=== PATIENT | female | born 1965 | race Caucasian/White ===

== ENCOUNTER 2017-02-01 13:35 | Emergency (ER) | payer MEDICARE, MEDICAID ==
[2017-02-01 15:18] VITALS: BP 113/87
--- NOTE | 2017-02-04 16:02 | ER ---
DATE SEEN: 02/01/2017 HISTORY OF PRESENT ILLNESS: This is a 51-year-old woman, who lives in [facility]. PAST MEDICAL HISTORY: Significant for VSD, congenital heart disease, seizures, autism, developmental delay, profound mental retardation. Today, she presents because the staff worker thought perhaps she had transient loss of right arm use, it was "quite limp" which has come back to normal. MEDICATIONS: 1. Trazodone 50 at bedtime. 2. Seroquel 25 mg t.i.d. 3. Oxcarbazepine 300 mg b.i.d. 4. Zyrtec 10 mg daily. 5. Temovate 1 application b.i.d. p.r.n. 6. Mupirocin p.r.n. 7. Mineral oil daily to each ear. 8. Lorazepam 1 mg q.4 hours p.r.n. 9. Risperdal 1 mg at 8 o'clock and 1600. 10.Carbamazepine 400 mg at 8 o'clock and 12 noon. 11.Carbamazepine 600 mg in the evening. 12.Cryselle control daily. 13.Naproxen 220 to 440 mg q.12 hours p.r.n. ALLERGIES: Depakote, penicillin, and Thorazine. REVIEW OF SYSTEMS: The patient is unable to provide any history. Constitution: She is attended by a staff worker from the [facility]. PHYSICAL EXAMINATION: INSPECTION: She has a hatchet face. NEUROLOGIC: She has a flat affect. Mouth is open, has groans intermittently. This is her only communication. She has very significant dysconjugate gaze with her left eye gazing laterally and right eye gazing at me. Her teeth are very . Several teeth missing. Fairly good hygiene. Uvula and tongue are midline. No facial tenderness with palpation. No ecchymosis, swelling, or tenderness. NECK: No tenderness or cervical adenopathy. No thyromegaly. No bruits in the neck. There is a soft murmur that is transmitted from the chest to the carotids on left side, more notable crescendo-decrescendo 2/6 murmur in the left hand side (aortic stenosis). CARDIAC: Irregularity of heartbeat. LUNGS: Clear to auscultation without rales or rhonchi. ABDOMEN: Soft. No guarding. No abdominal discomfort. No CVA percussion tenderness. No spinous process tenderness, ecchymosis, contusions, or bruises noted in upper and lower spine or chest or abdomen. PELVIC: Not performed. EXTREMITIES: Lower extremities without edema. MUSCULOSKELETAL: She has almost stork like legs with decreased muscle mass in lower extremities, more decreased than would be normal. Strength is satisfactory. She has 1 to 2+ deep tendon reflexes that are symmetrical in upper and lower extremities. Hand soft shoe dancer is intact in upper and lower extremities. No pronator drift. She can perform zobovd-pf-mica test, no dysmetria. No tremor noted. Her gait is wide-based, shuffling, and short steps taken. No evidence for lateralizing MANAGER FRONT OFFICE findings. No evidence for seizure. Dysconjugate gaze reflects brainstem abnormality and also optic nerve abnormalities. No Cecilio Gabriel pupil noted (afferent pupillary defect). No evidence for paresis or weakness that is unilateral. ASSESSMENT: 1. Profound mental retardation, known seizure disorder. 2. Ventral septal defect. 3. Congenital heart disease. 4. Autism. 5. Severe developmental delay. PLAN: 1. Reassured staff no CVA or paresis. 2. Followup with MD in one week. The patient was seen at 1345. /[id number] ROSA/ANTONY
== END 2017-02-01 15:17 | disposition home or self-care (01) ==
LOC: FB.ED 13:35
DX: F73 Profound intellectual disabilities (principal); Q21.0 Ventricular septal defect; Q24.9 Congenital malformation of heart, unspecified; F84.0 Autistic disorder; R62.50 Unspecified lack of expected normal physiological development in childhood; Z79.899 Other long term (current) drug therapy; Z88.8 Allergy status to other drugs, medicaments and biological substances; Z88.0 Allergy status to penicillin
CPT/HCPCS: 36415; 80053; 85025; 99282; 99284

== ENCOUNTER 2021-04-07 17:57 | Emergency (ER) | payer MEDICARE, MEDICAID ==
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
[2021-04-08 10:16] VITALS: BP 125/78; PULSE 97
== END 2021-04-07 20:25 | disposition home or self-care (01) ==
LOC: FB.ED 17:57
DX: S00.212A Abrasion of left eyelid and periocular area, initial encounter (principal); Z88.0 Allergy status to penicillin; Z88.8 Allergy status to other drugs, medicaments and biological substances; Y04.0XXA Assault by unarmed brawl or fight, initial encounter; Y92.009 Unspecified place in unspecified non-institutional (private) residence as the place of occurrence of the external cause
CPT/HCPCS: 99283

== ENCOUNTER 2022-07-13 11:17 | Emergency (ER) | payer MEDICARE, MEDICAID ==
[2022-07-13 11:38] VITALS: BP 97/55; PULSE 69
[2022-07-13 12:11] LABS: ESTIMATED GFR 100 mL/min (>60)
[2022-07-13] MEDS ORDERED: Sodium Chloride 0.9% 1,000 ML IV ONE (12:25)
[2022-07-13] MEDS ORDERED: diphenhydrAMINE 50 MG/ML SDV IVPUSH ONE (12:53)
[2022-07-13] MEDS ORDERED: LORazepam 2 MG/ML SDV ONE (13:29)
[2022-07-13] MEDS ORDERED: LORazepam 2 MG/ML SDV IVPUSH ONE (13:29)
== END 2022-07-13 15:15 | disposition home or self-care (01) ==
LOC: FB.ED 11:17
DX: R56.9 Unspecified convulsions (principal); E86.0 Dehydration; Z88.0 Allergy status to penicillin; Z88.8 Allergy status to other drugs, medicaments and biological substances
CPT/HCPCS: 36415; 71045; 80053; 81001; 83605; 85025; 87040; 87077; 87186; 96361; 96374; 96375; 99284-25; 99285; J1200; J2060; J7030

== ENCOUNTER 2024-10-13 07:35 | Inpatient (IN) | payer MEDICARE, MEDICAID, OTHER ==
[2024-10-13] MEDS: Sodium Chloride 0.9% 10 ML Syringe FLUSH PRN (08:08)
[2024-10-13 08:31] LABS: BASOPHILS PERCENT AUTO 0.4 % (0.2-1.5); EOSINOPHILS ABSOLUTE AUTO 0.1 x10-3/uL (0.0-0.8); EOSINOPHILS PERCENT AUTO 1.1 % (0.6-8.1); HEMATOCRIT 48.9 % (34.2-48.2); HEMOGLOBIN 16.8 g/dL (11.4-15.5); LYMPHOCYTES ABSOLUTE AUTO 1.1 x10-3/uL (1.0-4.4); LYMPHOCYTES PERCENT AUTO 9.3 % (18.4-52.1); MEAN CORPUSCULAR HEMOGLOBIN 30.8 pg (23.9-33.9); MEAN CORPUSCULAR HGB CONC 34.3 g/dL (31.9-34.8); MEAN CORPUSCULAR VOLUME 89.8 fL (76.7-100.5); MEAN PLATELET VOLUME 7.5 fL (7.1-12.4); MONOCYTES ABSOLUTE AUTO 0.7 x10-3/uL (0.3-1.0); MONOCYTES PERCENT AUTO 5.7 % (4.4-15.7); NEUTROPHILS ABSOLUTE AUTO 10.2 x10-3/uL (1.5-6.3); NEUTROPHILS PERCENT AUTO 83.5 % (30.8-76.2); PLATELET COUNT,PLT 319 x10(3)uL (151-488); RED BLOOD CELL COUNT 5.45 x10(6)uL (3.60-5.20); RED CELL DISTRIBUTION WIDTH 13.4 % (12.3-16.5); WHITE BLOOD CELL COUNT,WBC 12.3 x10-3/uL (3.0-10.3)
[2024-10-13 08:33] LABS: BLOOD UREA NITROGEN,BUN 12 mg/dL (7-18); BUN/CREATININE RATIO 13.3 (9-20); CALCIUM 9.7 mg/dL (8.6-10.2); CARBON DIOXIDE,CO2 29 mmol/L (21-32); CHLORIDE,CL 92 mmol/L (100-110); CREATININE 0.9 mg/dL (0.55-1.02); EST CRCL DRUG DOSING (CG) 62.23 mL/min; ESTIMATED GFR 73 mL/min (>60); GLUCOSE RANDOM 105 mg/dL (80-116); POTASSIUM,K 4.8 mmol/L (3.5-5.3); SODIUM,NA 129 mmol/L (135-145)
[2024-10-13 08:39] LABS: BASE EXCESS VENOUS,POC 2 mmol/L (-2 - 3+); PCO2 VENOUS,POC 34 mmHg (41-51); PH VENOUS,POC 7.48 pH Units (7.32-7.43)
[2024-10-13 08:39] LABS: A/G RATIO 0.9; ALANINE AMINOTRANSFERASE,ALT 25 U/L (12-36); ALBUMIN 4.1 g/dL (3.2-4.6); ALKALINE PHOSPHATASE 156 IU/L (56-112); ASPARTATE AMNIOTRANSFERASE,AST 20 IU/L (5-25); BILIRUBIN TOTAL 0.3 mg/dL (0.1-1.3); PROTEIN TOTAL,TP 8.5 g/dL (6.0-8.0)
[2024-10-13 08:41] LABS: LACTIC ACID 1.7 mmol/L (0.4-2.0)
[2024-10-13] MEDS ORDERED: Sennosides/Docusate Sodium 50-8.6 MG Tab PO PRN (09:16)
[2024-10-13] MEDS ORDERED: Ondansetron 4 MG/2 ML SDV IV PRN (09:16)
[2024-10-13] MEDS ORDERED: Albuterol 0.083% 2.5 MG/3 ML Neb Soln NEB PRN (09:16)
[2024-10-13] MEDS: cefTRIAXone 1 GM Vial IVPUSH SCH (10:22)
[2024-10-13] MEDS: Albuterol/Ipratropium 3.0-0.5 MG/3 ML Neb Soln NEB SCH (10:22)
[2024-10-13] MEDS: Azithromycin 500 MG in Sodium Chloride 0.9% 250 ML IV SCH (10:23)
[2024-10-13] MEDS: Sodium Chloride 0.9% 1,000 ML IV SCH (10:25)
[2024-10-13] MEDS: Enoxaparin 40 MG/0.4 ML Syringe SUBCUT SCH (10:29)
[2024-10-13 11:40] LABS: BILIRUBIN,URINE NEGATIVE (NEGATIVE); GLUCOSE,URINE NORMAL (NORMAL); KETONES,URINE NEGATIVE (NEGATIVE); LEUKOCYTE ESTERASE,URINE NEGATIVE (NEGATIVE); NITRITE,URINE POSITIVE (NEGATIVE); OCCULT BLOOD,URINE NEGATIVE (NEGATIVE); PROTEIN,URINE TRACE mg/dL (NEGATIVE); UROBILINOGEN,URINE NORMAL (NEGATIVE)
[2024-10-13 11:41] LABS: APPEARANCE,URINE SLIGHTLY CLOUDY (CLEAR); COLOR,URINE YELLOW (YELLOW)
[2024-10-13 11:46] LABS: BACTERIA,URINE MANY (NS); EPITHELIAL CELLS,URINE FEW; MUCUS,URINE MODERATE (NS); RBC,URINE 0-5 (0-5)
[2024-10-14 07:37] LABS: BLOOD UREA NITROGEN,BUN 10 mg/dL (7-18); BUN/CREATININE RATIO 12.5 (9-20); CARBON DIOXIDE,CO2 26 mmol/L (21-32); CHLORIDE,CL 103 mmol/L (100-110); CREATININE 0.8 mg/dL (0.55-1.02); EST CRCL DRUG DOSING (CG) 67.29 mL/min; ESTIMATED GFR 84 mL/min (>60); GLUCOSE RANDOM 84 mg/dL (80-116); POTASSIUM,K 4.5 mmol/L (3.5-5.3); SODIUM,NA 136 mmol/L (135-145)
[2024-10-14 07:38] LABS: A/G RATIO 0.9; ALANINE AMINOTRANSFERASE,ALT 24 U/L (12-36); ALBUMIN 3.3 g/dL (3.2-4.6); ALKALINE PHOSPHATASE 121 IU/L (56-112); ASPARTATE AMNIOTRANSFERASE,AST 16 IU/L (5-25); BILIRUBIN TOTAL 0.3 mg/dL (0.1-1.3); CALCIUM 9.1 mg/dL (8.6-10.2); PROTEIN TOTAL,TP 6.9 g/dL (6.0-8.0)
[2024-10-14 07:58] LABS: BASOPHILS PERCENT AUTO 0.4 % (0.2-1.5); EOSINOPHILS ABSOLUTE AUTO 0.2 x10-3/uL (0.0-0.8); EOSINOPHILS PERCENT AUTO 2.6 % (0.6-8.1); HEMATOCRIT 46.5 % (34.2-48.2); HEMOGLOBIN 15.4 g/dL (11.4-15.5); LYMPHOCYTES ABSOLUTE AUTO 1.8 x10-3/uL (1.0-4.4); LYMPHOCYTES PERCENT AUTO 26.1 % (18.4-52.1); MEAN CORPUSCULAR HEMOGLOBIN 30.5 pg (23.9-33.9); MEAN CORPUSCULAR HGB CONC 33.1 g/dL (31.9-34.8); MEAN CORPUSCULAR VOLUME 92.2 fL (76.7-100.5); MEAN PLATELET VOLUME 8.2 fL (7.1-12.4); MONOCYTES ABSOLUTE AUTO 0.5 x10-3/uL (0.3-1.0); MONOCYTES PERCENT AUTO 7.6 % (4.4-15.7); NEUTROPHILS ABSOLUTE AUTO 4.4 x10-3/uL (1.5-6.3); NEUTROPHILS PERCENT AUTO 63.4 % (30.8-76.2); PLATELET COUNT,PLT 278 x10(3)uL (151-488); RED BLOOD CELL COUNT 5.04 x10(6)uL (3.60-5.20); RED CELL DISTRIBUTION WIDTH 13.6 % (12.3-16.5); WHITE BLOOD CELL COUNT,WBC 6.9 x10-3/uL (3.0-10.3)
[2024-10-14] MEDS ORDERED: Loratadine 10 MG Tab PO PRN (09:47)
[2024-10-14] MEDS: Polyethylene Glycol 3350 Powder 17 GM Packet PO SCH (11:11)
[2024-10-14] MEDS: Oxybutynin 5 MG Tab PO SCH (11:11)
[2024-10-14] MEDS: Celecoxib 100 MG Cap PO SCH (11:11)
[2024-10-14] MEDS: Loratadine 10 MG Tab PO SCH (11:11)
[2024-10-14] MEDS: QUEtiapine 25 MG Tab PO SCH ×2 (11:12→13:58)
[2024-10-14] MEDS: OXcarbazepine 300 MG Tab PO SCH (11:45)
[2024-10-14] MEDS: LORazepam 1 MG Tab PO SCH ×2 (11:45→13:59)
[2024-10-14] MEDS: traZODone 50 MG Tab PO SCH (20:52)
[2024-10-15 07:32] LABS: BLOOD UREA NITROGEN,BUN 15 mg/dL (7-18); BUN/CREATININE RATIO 18.8 (9-20); CALCIUM 9.5 mg/dL (8.6-10.2); CARBON DIOXIDE,CO2 30 mmol/L (21-32); CHLORIDE,CL 101 mmol/L (100-110); CREATININE 0.8 mg/dL (0.55-1.02); EST CRCL DRUG DOSING (CG) 67.29 mL/min; ESTIMATED GFR 84 mL/min (>60); GLUCOSE RANDOM 88 mg/dL (80-116); POTASSIUM,K 4.5 mmol/L (3.5-5.3); SODIUM,NA 137 mmol/L (135-145)
[2024-10-15 07:34] LABS: BASOPHILS PERCENT AUTO 0.3 % (0.2-1.5); EOSINOPHILS ABSOLUTE AUTO 0.3 x10-3/uL (0.0-0.8); EOSINOPHILS PERCENT AUTO 3.6 % (0.6-8.1); HEMATOCRIT 52.2 % (34.2-48.2); HEMOGLOBIN 16.8 g/dL (11.4-15.5); LYMPHOCYTES ABSOLUTE AUTO 1.6 x10-3/uL (1.0-4.4); MEAN CORPUSCULAR HEMOGLOBIN 29.7 pg (23.9-33.9); MEAN CORPUSCULAR HGB CONC 32.1 g/dL (31.9-34.8); MEAN CORPUSCULAR VOLUME 92.6 fL (76.7-100.5); MEAN PLATELET VOLUME 7.5 fL (7.1-12.4); MONOCYTES ABSOLUTE AUTO 0.7 x10-3/uL (0.3-1.0); NEUTROPHILS ABSOLUTE AUTO 5.6 x10-3/uL (1.5-6.3); PLATELET COUNT,PLT 317 x10(3)uL (151-488); RED BLOOD CELL COUNT 5.64 x10(6)uL (3.60-5.20); WHITE BLOOD CELL COUNT,WBC 8.2 x10-3/uL (3.0-10.3)
[2024-10-15] MEDS ORDERED: ZINC OXIDE TOP SCH (09:00)
[2024-10-15] MEDS: Azithromycin 500 MG Tab PO SCH (09:10)
[2024-10-15] MEDS: LORazepam 0.5 MG Tab PO SCH (13:33)
[2024-10-16 06:57] LABS: BASOPHILS ABSOLUTE AUTO 0.1 x10-3/uL (0.0-0.1); BASOPHILS PERCENT AUTO 0.7 % (0.2-1.5); EOSINOPHILS ABSOLUTE AUTO 0.3 x10-3/uL (0.0-0.8); EOSINOPHILS PERCENT AUTO 3.8 % (0.6-8.1); HEMATOCRIT 45.3 % (34.2-48.2); HEMOGLOBIN 15.2 g/dL (11.4-15.5); LYMPHOCYTES ABSOLUTE AUTO 1.9 x10-3/uL (1.0-4.4); LYMPHOCYTES PERCENT AUTO 21.1 % (18.4-52.1); MEAN CORPUSCULAR HEMOGLOBIN 30.2 pg (23.9-33.9); MEAN CORPUSCULAR HGB CONC 33.6 g/dL (31.9-34.8); MEAN CORPUSCULAR VOLUME 89.9 fL (76.7-100.5); MEAN PLATELET VOLUME 7.6 fL (7.1-12.4); MONOCYTES ABSOLUTE AUTO 0.9 x10-3/uL (0.3-1.0); MONOCYTES PERCENT AUTO 9.9 % (4.4-15.7); NEUTROPHILS ABSOLUTE AUTO 5.7 x10-3/uL (1.5-6.3); NEUTROPHILS PERCENT AUTO 64.5 % (30.8-76.2); PLATELET COUNT,PLT 300 x10(3)uL (151-488); RED BLOOD CELL COUNT 5.04 x10(6)uL (3.60-5.20); RED CELL DISTRIBUTION WIDTH 13.7 % (12.3-16.5); WHITE BLOOD CELL COUNT,WBC 8.9 x10-3/uL (3.0-10.3)
[2024-10-16 07:07] LABS: BLOOD UREA NITROGEN,BUN 27 mg/dL (7-18); CALCIUM 9.5 mg/dL (8.6-10.2); CARBON DIOXIDE,CO2 27 mmol/L (21-32); CHLORIDE,CL 101 mmol/L (100-110); EST CRCL DRUG DOSING (CG) 53.83 mL/min; ESTIMATED GFR 64 mL/min (>60); GLUCOSE RANDOM 86 mg/dL (80-116); POTASSIUM,K 4.3 mmol/L (3.5-5.3); SODIUM,NA 137 mmol/L (135-145)
[2024-10-17] MEDS: Cefuroxime 250 MG Tab PO SCH (08:36)
[2024-10-17] MEDS ORDERED: MINERAL OIL EARBOTH SCH (09:47)
[2024-10-17] MEDS ORDERED: Albuterol/Ipratropium 3.0-0.5 MG/3 ML Neb Soln NEB PRN (10:12)
[2024-10-18] MEDS: hydrOXYzine HCl 25 MG Tab PO PRN (03:56)
[2024-10-18 12:52] VITALS: BP 125/97; PULSE 80
== END 2024-10-18 12:48 | DRG 193 ==
LOC: FB.ED 07:35 → FB.MS 09:16
PROVIDERS: ADMIT Emergency Medicine; ATTEND Internal Medicine
DX: J18.9 Pneumonia, unspecified organism (principal); J96.01 Acute respiratory failure with hypoxia; F84.0 Autistic disorder; F73 Profound intellectual disabilities; K11.7 Disturbances of salivary secretion; I95.9 Hypotension, unspecified; E86.1 Hypovolemia; R53.1 Weakness; H52.10 Myopia, unspecified eye; Q21.9 Congenital malformation of cardiac septum, unspecified; K59.09 Other constipation; R56.9 Unspecified convulsions; E86.0 Dehydration; B00.9 Herpesviral infection, unspecified; N39.0 Urinary tract infection, site not specified; Z88.8 Allergy status to other drugs, medicaments and biological substances; Z88.0 Allergy status to penicillin; Z79.899 Other long term (current) drug therapy
CPT/HCPCS: 36415; 71045; 80048; 80053; 81001; 83605; 83880; 84484; 85025; 87040; 87086; 87428-QW; 92610-GN; 93005; 93010; 94640; 99223; 99233; 99238; 99285; A9270-GY; J0456; J0696; J1650; J7030; J7050

== ENCOUNTER 2024-10-24 15:21 | Emergency (ER) | payer MEDICARE, MEDICAID ==
[2024-10-24] MEDS ORDERED: Sodium Chloride 0.9% 10 ML Syringe FLUSH PRN (15:25)
[2024-10-24] MEDS: Sodium Chloride 0.9% 1,000 ML IV SCH (16:00)
[2024-10-24 16:03] LABS: BLOOD UREA NITROGEN,BUN 12 mg/dL (7-18); CALCIUM 9.5 mg/dL (8.6-10.2); CARBON DIOXIDE,CO2 32 mmol/L (21-32); CHLORIDE,CL 94 mmol/L (100-110); CREATININE 0.8 mg/dL (0.55-1.02); ESTIMATED GFR 84 mL/min (>60); GLUCOSE RANDOM 77 mg/dL (80-116); POTASSIUM,K 4.6 mmol/L (3.5-5.3); SODIUM,NA 132 mmol/L (135-145)
[2024-10-24 16:04] LABS: BASE EXCESS VENOUS,POC 0 mmol/L (-2 - 3+); PCO2 VENOUS,POC 45 mmHg (41-51); PH VENOUS,POC 7.37 pH Units (7.32-7.43)
[2024-10-24] MEDS: Ketorolac 30 MG/ML SDV IM ONE (16:05)
[2024-10-24] MEDS: Cyclobenzaprine 10 MG Tab PO ONE (16:05)
[2024-10-24] MEDS: Acetaminophen/oxyCODONE 325-5 MG Tab PO STA (16:05)
[2024-10-24 16:07] LABS: BASOPHILS PERCENT AUTO 0.4 % (0.2-1.5); EOSINOPHILS ABSOLUTE AUTO 0.2 x10-3/uL (0.0-0.8); EOSINOPHILS PERCENT AUTO 2.9 % (0.6-8.1); HEMOGLOBIN 17.6 g/dL (11.4-15.5); LYMPHOCYTES ABSOLUTE AUTO 1.8 x10-3/uL (1.0-4.4); LYMPHOCYTES PERCENT AUTO 22.1 % (18.4-52.1); MEAN CORPUSCULAR HEMOGLOBIN 30.3 pg (23.9-33.9); MEAN CORPUSCULAR HGB CONC 33.8 g/dL (31.9-34.8); MEAN CORPUSCULAR VOLUME 89.8 fL (76.7-100.5); MONOCYTES ABSOLUTE AUTO 0.9 x10-3/uL (0.3-1.0); MONOCYTES PERCENT AUTO 11.5 % (4.4-15.7); NEUTROPHILS PERCENT AUTO 63.1 % (30.8-76.2); PLATELET COUNT,PLT 355 x10(3)uL (151-488); RED BLOOD CELL COUNT 5.79 x10(6)uL (3.60-5.20); RED CELL DISTRIBUTION WIDTH 13.2 % (12.3-16.5); WHITE BLOOD CELL COUNT,WBC 7.9 x10-3/uL (3.0-10.3)
[2024-10-24 16:10] LABS: A/G RATIO 0.9; ALANINE AMINOTRANSFERASE,ALT 34 U/L (12-36); ALBUMIN 3.8 g/dL (3.2-4.6); ALKALINE PHOSPHATASE 157 IU/L (56-112); ASPARTATE AMNIOTRANSFERASE,AST 20 IU/L (5-25); BILIRUBIN TOTAL 0.3 mg/dL (0.1-1.3)
[2024-10-24 16:14] LABS: LACTIC ACID 0.8 mmol/L (0.4-2.0)
[2024-10-24 16:18] LABS: TROPONIN I 6.1 pg/mL (4.0-60.3)
[2024-10-24 17:09] LABS: BILIRUBIN,URINE NEGATIVE (NEGATIVE); GLUCOSE,URINE NORMAL (NORMAL); KETONES,URINE NEGATIVE (NEGATIVE); LEUKOCYTE ESTERASE,URINE NEGATIVE (NEGATIVE); NITRITE,URINE NEGATIVE (NEGATIVE); OCCULT BLOOD,URINE NEGATIVE (NEGATIVE); PROTEIN,URINE NEGATIVE (NEGATIVE); UROBILINOGEN,URINE NORMAL (NEGATIVE)
[2024-10-24 17:10] LABS: APPEARANCE,URINE CLEAR (CLEAR); COLOR,URINE YELLOW (YELLOW)
[2024-10-24] MEDS: Albuterol/Ipratropium 3.0-0.5 MG/3 ML Neb Soln NEB ONE (17:33)
[2024-10-24 19:43] VITALS: BP 130/80; PULSE 84
== END 2024-10-24 18:15 | disposition home or self-care (01) ==
LOC: FB.ED 15:21
DX: I95.9 Hypotension, unspecified (principal); Z79.899 Other long term (current) drug therapy; E86.0 Dehydration; E87.1 Hypo-osmolality and hyponatremia; Z88.0 Allergy status to penicillin; Z88.8 Allergy status to other drugs, medicaments and biological substances
CPT/HCPCS: 36415; 71045; 80053; 81003; 83605; 83880; 84484; 85025; 93005; 94640; 96360; 99285; A9270; J7030

== ENCOUNTER 2024-11-16 13:51 | Emergency (ER) | payer MEDICARE, MEDICAID ==
[2024-11-16 15:04] LABS: BLOOD UREA NITROGEN,BUN 14 mg/dL (7-18); BUN/CREATININE RATIO 17.5 (9-20); CALCIUM 9.3 mg/dL (8.6-10.2); CARBON DIOXIDE,CO2 29 mmol/L (21-32); CHLORIDE,CL 92 mmol/L (100-110); CREATININE 0.8 mg/dL (0.55-1.02); EST CRCL DRUG DOSING (CG) 70.01 mL/min; ESTIMATED GFR 84 mL/min (>60); GLUCOSE RANDOM 70 mg/dL (80-116); POTASSIUM,K 4.4 mmol/L (3.5-5.3); SODIUM,NA 124 mmol/L (135-145)
[2024-11-16 15:05] LABS: BASOPHILS PERCENT AUTO 0.4 % (0.2-1.5); EOSINOPHILS ABSOLUTE AUTO 0.3 x10-3/uL (0.0-0.8); EOSINOPHILS PERCENT AUTO 3.6 % (0.6-8.1); HEMATOCRIT 46.6 % (34.2-48.2); HEMOGLOBIN 15.8 g/dL (11.4-15.5); LYMPHOCYTES ABSOLUTE AUTO 1.4 x10-3/uL (1.0-4.4); LYMPHOCYTES PERCENT AUTO 19.7 % (18.4-52.1); MEAN CORPUSCULAR HEMOGLOBIN 29.9 pg (23.9-33.9); MEAN CORPUSCULAR VOLUME 87.9 fL (76.7-100.5); MEAN PLATELET VOLUME 7.7 fL (7.1-12.4); MONOCYTES ABSOLUTE AUTO 0.9 x10-3/uL (0.3-1.0); NEUTROPHILS ABSOLUTE AUTO 4.6 x10-3/uL (1.5-6.3); NEUTROPHILS PERCENT AUTO 64.3 % (30.8-76.2); PLATELET COUNT,PLT 289 x10(3)uL (151-488); RED CELL DISTRIBUTION WIDTH 13.3 % (12.3-16.5); WHITE BLOOD CELL COUNT,WBC 7.1 x10-3/uL (3.0-10.3)
[2024-11-16 15:09] LABS: BASE EXCESS VENOUS,POC -2 mmol/L (-2 - 3+); PCO2 VENOUS,POC 50 mmHg (41-51); PH VENOUS,POC 7.32 pH Units (7.32-7.43)
[2024-11-16 15:10] LABS: ALANINE AMINOTRANSFERASE,ALT 27 U/L (12-36); ALBUMIN 3.7 g/dL (3.2-4.6); ALKALINE PHOSPHATASE 142 IU/L (56-112); ASPARTATE AMNIOTRANSFERASE,AST 21 IU/L (5-25); BILIRUBIN TOTAL 0.2 mg/dL (0.1-1.3); PROTEIN TOTAL,TP 7.5 g/dL (6.0-8.0)
[2024-11-16 15:17] LABS: TROPONIN I 6.4 pg/mL (4.0-60.3)
[2024-11-16] MEDS: Albuterol/Ipratropium 3.0-0.5 MG/3 ML Neb Soln NEB ONE (15:31)
[2024-11-16 15:45] VITALS: BP 123/73; PULSE 76
== END 2024-11-16 16:15 | disposition home or self-care (01) ==
LOC: FB.ED 13:51
DX: E87.1 Hypo-osmolality and hyponatremia (principal); R06.9 Unspecified abnormalities of breathing; Z88.0 Allergy status to penicillin; Z88.8 Allergy status to other drugs, medicaments and biological substances; Z79.899 Other long term (current) drug therapy
CPT/HCPCS: 36415; 71045; 80053; 83605; 83880; 84484; 85025; 85379; 93005; 94640; 99284; A9270

== ENCOUNTER 2024-12-27 11:49 | Emergency (ER) | payer MEDICARE, MEDICAID ==
[2024-12-27 12:14] VITALS: BP 114/94; PULSE 80
[2024-12-27 13:04] LABS: BASOPHILS ABSOLUTE AUTO 0.1 x10-3/uL (0.0-0.1); BASOPHILS PERCENT AUTO 0.6 % (0.2-1.5); EOSINOPHILS ABSOLUTE AUTO 0.1 x10-3/uL (0.0-0.8); EOSINOPHILS PERCENT AUTO 1.6 % (0.6-8.1); LYMPHOCYTES ABSOLUTE AUTO 1.2 x10-3/uL (1.0-4.4); LYMPHOCYTES PERCENT AUTO 12.3 % (18.4-52.1); MEAN PLATELET VOLUME 7.6 fL (7.1-12.4); MONOCYTES ABSOLUTE AUTO 0.9 x10-3/uL (0.3-1.0); MONOCYTES PERCENT AUTO 9.4 % (4.4-15.7); NEUTROPHILS ABSOLUTE AUTO 7.2 x10-3/uL (1.5-6.3); NEUTROPHILS PERCENT AUTO 76.1 % (30.8-76.2); PLATELET COUNT,PLT 297 x10(3)uL (151-488); RED BLOOD CELL COUNT 6.01 x10(6)uL (3.60-5.20); RED CELL DISTRIBUTION WIDTH 13.5 % (12.3-16.5); WHITE BLOOD CELL COUNT,WBC 9.4 x10-3/uL (3.0-10.3)
[2024-12-27 13:17] LABS: BLOOD UREA NITROGEN,BUN 11 mg/dL (7-18); CARBON DIOXIDE,CO2 31 mmol/L (21-32); CHLORIDE,CL 92 mmol/L (100-110); CREATININE 0.8 mg/dL (0.55-1.02); EST CRCL DRUG DOSING (CG) 63.77 mL/min; ESTIMATED GFR 84 mL/min (>60); GLUCOSE RANDOM 105 mg/dL (80-116); POTASSIUM,K 4.4 mmol/L (3.5-5.3); SODIUM,NA 129 mmol/L (135-145)
[2024-12-27 13:28] LABS: A/G RATIO 1.2; ALANINE AMINOTRANSFERASE,ALT 34 U/L (12-36); ASPARTATE AMNIOTRANSFERASE,AST 26 IU/L (5-25); BILIRUBIN TOTAL 0.4 mg/dL (0.1-1.3); PROTEIN TOTAL,TP 8.4 g/dL (6.0-8.0)
== END 2024-12-27 14:30 ==
LOC: FB.ED 11:49
DX: R55 Syncope and collapse (principal); E87.1 Hypo-osmolality and hyponatremia; Z88.0 Allergy status to penicillin; Z88.8 Allergy status to other drugs, medicaments and biological substances; Z79.899 Other long term (current) drug therapy
CPT/HCPCS: 36415; 71045; 80053; 84484; 85025; 85379; 93005; 99285